=== PATIENT | female | born 1975 | race Caucasian/White ===

== ENCOUNTER 2016-12-09 18:32 | Emergency (ER) | payer BC, OTHER ==
[~2016-12-09] VITALS: Ht 152.4 cm; Wt 90.4 kg
[~2016-12-09 18:32] MED LIST: VITAMIN B12 PO
[2016-12-09 18:35] VITALS: TEMP 36.5; Ht 152.4 cm; Wt 90.4 kg
[2016-12-09] MEDS ORDERED: BIOT1CHW PO (18:47)
[2016-12-09] MEDS ORDERED: LIPOZENE PO (18:47)
--- NOTE | 2016-12-09 19:37 | DIAGNOSTIC IMAGING REPORT ---
RIGHT FOOT MIN 3 VIEWS ROUTINE CLINICAL HISTORY: Right foot pain. COMPARISON: None. DISCUSSION: No fractures or dislocations are visualized. There are no erosive or destructive changes. There is plantar calcaneal spurring, and Achilles insertional calcification.. IMPRESSION: 1. No acute fractures. 2. Calcaneal spurring. Electronically signed by: Michele Mullen M.D. 12/09/2016 7:36 PM Dictated Date/Time: 12/09/2016 7:35 PM
[2016-12-09 19:55] VITALS: BP 122/87; PULSE 89; O2SAT 98
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
== END 2016-12-09 19:55 | disposition home or self-care (01) ==
LOC: C.EDB 18:33 → C.EDD 19:55
DX: M72.2 Plantar fascial fibromatosis (principal); M76.821 Posterior tibial tendinitis, right leg; Z87.820 Personal history of traumatic brain injury

== ENCOUNTER 2017-02-05 09:56 | Emergency (ER) | payer OTHER ==
[~2017-02-05 09:56] MED LIST changes: +BIOT1CHW PO; +LIPOZENE PO; -VITAMIN B12 PO
[2017-02-05 10:01] VITALS: Ht 152.4 cm
[2017-02-05] MEDS ORDERED: KETOROLAC TROMETHAMINE 60 MG/2 ML VIAL IM STA (10:20)
[2017-02-05] MEDS ORDERED: DIAZEPAM 5MG TAB PO ONE (10:30)
[2017-02-05] MEDS ORDERED: NAPR-1169 PO (11:38)
[2017-02-05] MEDS ORDERED: DIAZ-165 PO (11:39)
--- NOTE | 2017-02-05 11:40 | EMERGENCY ROOM VISIT NOTE ---
ED Visit Note First contact with patient: 10:07 CHIEF COMPLAINT: Low back pain HISTORY OF PRESENT INJURY: This 41-year-old female patient presents to the emergency department with complaint of low back pain radiating down her left leg. She states the pain started approximately one hour ago and came on suddenly like a spasm. 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 Pain is worse with movement, better with rest, sharp and stabbing, 8/10. She did not try any medication for the pain prior to arrival. No chest, neck, or abdominal pain. No loss of consciousness or head injury. No numbness or weakness of the extremities. No nausea or vomiting. REVIEW OF SYSTEMS: No head injury or headache, no direct head trauma. NECK: No neck pain, stiffness, or limitation of motion. No numbness or weakness of the extremities. No abdominal pain. PMH: The patient is healthy; there is no significant medical or surgical history. SOCIAL HISTORY: Patient lives at home. PHYSICAL EXAM: Vital Signs: Reviewed Nurse's notes. NECK: No tenderness over the paraspinous muscles or the spinous processes of the posterior neck. NEUROLOGICAL: Alert and cooperative. Sensory and motor functions grossly intact. CHEST: Non-tender, symmetrical, no retractions. ABDOMEN: Soft, non- tender, no masses or organs felt. Bowel sounds are present and normal. BACK: There is tenderness in the lumbar area but no palpable muscle spasm or ecchymoses. LEGS: Normal gait, no limping or loss of sensation to tough. Negative bilateral straight leg raising, normal and symmetrical knee reflexes. EMERGENCY DEPARTMENT COURSE: I examined the patient. Differential diagnosis includes lumbar strain, sprain, radiculopathy, sciatica, unlikely fracture, subluxation herniated disc, or cauda equina. No red flags on exam. I do not feel any imaging is warranted at this time, as there has been no trauma. There is left-sided lumbar paraspinous tenderness with mild spasm noted. The patient was given IM Toradol and PO Valium, with good improvement in her pain. She was instructed to follow up closely with her PCP and we also discussed return precautions, she verbalized understanding. Patient was discharged home in stable condition and ambulatory. Current/Historical Medications Scheduled Diazepam (Valium), 5 MG PO TID Naproxen (Naprosyn), 500 MG PO BID Allergies Coded Allergies: No Known Allergies (Verified , 02/05/17) Vital Signs Date Time Temp Pulse Resp B/P (MAP) Pulse Ox O2 Delivery O2 Flow Rate FiO2 02/05/17 12:43 36.3 95 20 142/85 100 02/05/17 10:01 36.3 95 20 142/85 100 Room Air Medications Administered Medications (Trade) Dose Ordered Sig/Denisha Route Start Time Stop Time Status Last Admin Dose Admin Ketorolac Tromethamine (Toradol Inj) 60 mg NOW STAT IM 02/05/17 10:20 02/05/17 10:21 DC 02/05/17 10:55 60 MG Diazepam (Valium Tab) 10 mg NOW ONCE PO 02/05/17 10:30 02/05/17 10:31 DC 02/05/17 10:55 10 MG Departure Information Impression Primary Impression: Lumbar strain Additional Impression: Sciatica of left side Dispostion Home / Self-Care Condition GOOD Prescriptions Diazepam (Valium) 5 Mg Tab 5 MG PO TID for 3 Days, #9 TAB Prov: Nai Luciano, [employer]IVER 02/05/17 Naproxen (Naprosyn) 500 Mg Tab 500 MG PO BID for 14 Days, #28 TAB Prov: Nai Luciano, [employer] DRIVER 02/05/17 Referrals No Doctor, Assigned (PCP) Patient Instructions ED Sciatica, ED Sprain Strain Lumbar, [facility] Additional Instructions Take it easy for the next few days, no strenuous activity, heavy lifting, or bending/twisting motions, to allow your back to rest. Apply ice to the area for the next 24 hours, then alternate heat and ice for comfort. After heat, you may do gentle stretching and massage to the low back. Naprosyn as prescribed twice a day for the next 1-2 weeks as needed for pain. Do not take other NSAIDs while you are taking this medication. Valium muscle relaxer as prescribed, as needed for muscle tightness and spasms. This may make you drowsy. Do not drive or drink alcohol while taking. Follow up with your PCP in the next few days for further management. You may benefit from physical therapy. Please return to the ER if any problems with bowel or bladder function, numbness in your groin, high fevers, severe abdominal pain or worsening back pain, or if loss of feeling/movement of legs. Work Instructions Return To Work: 2 days Problem Qualifiers Primary Impression: Lumbar strain Encounter type: initial encounter Qualified Codes: S39.012A - Strain of muscle, fascia and tendon of lower back, initial encounter
[2017-02-05 12:43] VITALS: BP 142/85; PULSE 95; TEMP 36.3; O2SAT 100
== END 2017-02-05 12:46 | disposition home or self-care (01) ==
LOC: C.EDB 09:57
DX: S39.012A Strain of muscle, fascia and tendon of lower back, initial encounter (principal); X58.XXXA Exposure to other specified factors, initial encounter; M54.32 Sciatica, left side; Z79.899 Other long term (current) drug therapy